=== PATIENT | female | born 1970 | race Caucasian/White ===

== ENCOUNTER → 2016-05-11 | Outpatient (CLI) | payer OTHER | LOC: FIMAGING 08:21 | DX: Z12.31 Encounter for screening mammogram for malignant neoplasm of breast (principal) | CPT/HCPCS: G0202 ==

== ENCOUNTER → 2016-05-22 | Outpatient (CLI) | payer OTHER | LOC: FIMAGING 13:22 | PROVIDERS: ATTEND Obstetrics & Gynecology Gynecology | DX: R92.8 Other abnormal and inconclusive findings on diagnostic imaging of breast (principal); N60.01 Solitary cyst of right breast; N60.02 Solitary cyst of left breast | CPT/HCPCS: G0206 ==

== ENCOUNTER 2016-09-10 06:06 | Day surgery (SDC) | payer OTHER ==
[2016-09-10] MEDS ORDERED: LR 1,000 ML IV ONE (07:02)
[2016-09-10] MEDS ORDERED: LIDOCAINE 1% 2 ML INJ ID PRN (07:02)
[2016-09-10] MEDS ORDERED: MIDAZOLAM 2 MG/2 ML VIAL IVP ONE (07:47)
--- NOTE | 2016-09-10 07:51 | PDANEPAE ---
ANE History of Present Illness Hysteroscopy ANE Past Medical History - Cardiovascular History Hx Hypertension: No Hx Arrhythmias: No Hx Chest Pain: No Hx Coronary Artery / Peripheral Vascular Disease: No Hx CHF / Valvular Disease: No Hx Palpitations: No - Pulmonary History Hx COPD: No Hx Asthma/Reactive Airway Disease: No Hx Recent Upper Respiratory Infection: No Hx Oxygen in Use at Home: No Hx Sleep Apnea: No Sleep Apnea Screening Result - Last Documented: Negative - Neurologic History Hx Cerebrovascular Accident: No Hx Seizures: No Hx Dementia: No - Endocrine History Hx Diabetes: No Hypothyroid: No Hyperthyroid: No - Renal History Hx Renal Disorders: No - Liver History Hx Hepatic Disorders: No - Neurological & Psychiatric Hx Hx Neurological and Psychiatric Disorders: No - Cancer History Hx Cancer: No - Congenital Disorder History Hx Congenital Disorders: No - GI History GERD: no Hx Gastrointestinal Disorders: No - Other Health History Other Health History: UTERINE FIBROID - Chronic Pain History Chronic Pain: No - Surgical History Prior Surgeries: NONE ANE Review of Systems Review of systems is: negative - Exercise capacity METS (RN): 4 METS ANE Patient History - Allergies Allergies/Adverse Reactions: No Known Allergies Allergy (Unverified 08/07/16 13:57) - Home Medications Home Medications: ACETAMINOPHEN 2 tab BID PRN 08/07/16 [Last Taken 08/20/16] Co Q-10 1 tab DAILY 08/07/16 [Last Taken 08/20/16] IRON 1 tab DAILY 08/07/16 [Last Taken 08/20/16] Multivitamin (*) 1 tab DAILY 08/07/16 [Last Taken 08/20/16] Potassium Gluconate 2 tab DAILY 08/07/16 [Last Taken 08/20/16] Super B Complex-Vitamin C 1 tab DAILY 08/07/16 [Last Taken 08/20/16] - NPO status NPO Since - Liquids (Date): 09/09/16 NPO Since - Liquids (Time): 20:00 NPO Since - Solids (Date): 09/09/16 NPO Since - Solids (Time): 20:00 - Anes Hx Hx Anesthesia Complications (with details): No History - Smoking Hx Smoking Status: Never smoked Marijuana use: No - Alcohol Use Alcohol Use: Occasionally - Family Anes Hx Family Hx Anesthesia Complications: Father ID under anesthesia ANE Labs/Vital Signs - Vital Signs Blood Pressure: 112/60 Heart Rate: 66 Respiratory Rate: 16 O2 Sat (%): 97 Height: 175.26 cm Weight: 65.771 kg ANE Physical Exam - Airway Neck exam: FROM Mallampati Score: Class 1 Mouth exam: normal dental/mouth exam - Pulmonary Pulmonary: no respiratory distress - Cardiovascular Cardiovascular: regular rate and rhythym, no murmur, rub, or gallop - ASA Status ASA Status: I ANE Anesthesia Plan Anesthesia Plan: GA w LMA
[2016-09-10] MEDS ORDERED: PROPOFOL/EMULSION 500 MG/50 ML BOTTLE IV ONE (08:00)
[2016-09-10] MEDS ORDERED: fentaNYL 100 MCG/2 ML INJ ONE (08:00)
--- NOTE | 2016-09-10 08:08 | PDHPUP ---
History & Physical Update H&P update statement: This history and physical update is based on an assessment of the patient which was completed after admission or registration (within 24 hours), but prior to the surgery/procedure. H&P update: H&P reviewed & patient examined, no change in patient's condition since H&P completed
[2016-09-10] MEDS ORDERED: ONDANSETRON 4 MG/2 ML VIAL ONE (08:22)
[2016-09-10] MEDS ORDERED: KETOROLAC 30 MG/1 ML SDV ONE (08:22)
[2016-09-10] MEDS ORDERED: DEXAMETHASONE 4 MG/ML VIAL ONE (08:22)
[2016-09-10] MEDS ORDERED: fentaNYL 100 MCG/2 ML INJ IVP PRN (09:33)
[2016-09-10] MEDS ORDERED: NALOXONE HCL 0.4 MG/ML INJ IVP PRN (09:33)
[2016-09-10] MEDS ORDERED: HYDROmorphONE/DILAUDID 1 MG/ML SYR IVP PRN (09:33)
[2016-09-10] MEDS ORDERED: ONDANSETRON 4 MG/2 ML VIAL IVP PRN (09:33)
[2016-09-10 09:55] VITALS: TEMP 97.9
[2016-09-10 10:04] VITALS: RESP 16
--- NOTE | 2016-09-10 10:30 | POSTOPPROG ---
Post Op Note Date of Operation: 09/10/16 Surgeon: Cheryl Arthur Anesthesiologist: RONNI Anesthesia: LMA Pre-op Diagnosis: dub,FIBROIDS Post-op Diagnosis: dub,fibroid Indication: bleeding Procedure: H/S myomectomy/Novasure Findings: uterine fibroid Inf/Abcess present in the surg proc area at time of surgery?: No EBL: Minimal Complications: none Specimen(s): endometrial tissue
[2016-09-10 10:41] VITALS: PULSE 47
[2016-09-10 10:52] VITALS: BP 115/64; O2SAT 97
--- NOTE | 2016-09-10 12:34 | POSTANESTH ---
Post Anesthetic Evaluation Respiratory Status: Normal, Stable Level of Consciousness/Mental Status: Can Participate in Eval Pain Control: Adequate, Prn Tx Ordered Nausea/Vomiting Control: Adequate, Prn Tx Ordered Complications Possibly Related to Anesthesia: None Noted
--- NOTE | 2016-09-11 11:56 | GOP ---
[f rep st] OPERATIVE REPORT DATE OF OPERATION: 09/10/2016 SURGEON: Cheryl Arthur MD ANESTHESIOLOGIST: Bailee Onofre MD. PREOPERATIVE DIAGNOSIS: 1. Heavy menstrual cycles. 2. Symptomatic submucosal fibroid. POSTOPERATIVE DIAGNOSIS: 1. Heavy menstrual cycles. 2. Symptomatic submucosal fibroid. PROCEDURE PERFORMED: Hysteroscopic myomectomy with NovaSure endometrial ablation. FINDINGS: Very large-sized fibroid originating from the posterior wall of the uterus. There were s everal low or uterine segment polyps; otherwise normal-appearing endometrium. DESCRIPTION OF PROCEDURE: With informed consent signed, patient was taken to the operating room, pl aced under general anesthesia, and placed in low dorsal lithotomy position. Bladder previously empt ied. Tenaculum placed on the anterior lip of the cervix. Cervix dilated up to 9.5 mm. Hysteroscop e placed using normal saline as a filling medium, Louie and NephSibaritus TruClear hysteroscopic morcellato r placed into the uterine cavity, and resection of the fibroid done without complication. Once it w as felt that it was completely resected, hysteroscope removed, and the NovaSure endometrial ablation device placed into the uterine cavity. The uterus was previously sounded to 8 cm, so the length on the NovaSure was 6.5 cm with 4.5 integrity test passed and burn time was 60 seconds. Net fluid de ficit was about 700. A quick look with the hysteroscope showed good ablation results. The patient was placed in supine position, awakened in the operating room, and taken to the recovery room in sta ble condition, having tolerated the procedure well. INDICATIONS FOR PROCEDURE: Patient is a 46-year-old, G zero, who has a history of infertility. Was seen here earlier this year for complaints of very heavy menstrual cycles. Ultrasound sonohysterog romain showed a 2 cm submucosal fibroid. The patient desires definitive management without major surge ry. Endometrial biopsy was negative, and the patient wished us to proceed. She is aware that this will take away any possible childbearing possibility. COMPLICATIONS: None. /[id number]/MODL
== END 2016-09-10 10:55 | disposition home or self-care (01) ==
LOC: FSGY 06:06
PROVIDERS: ATTEND Obstetrics & Gynecology Gynecology
PROC: 0U5B8ZZ Destruction of Endometrium, Via Natural or Artificial Opening Endoscopic (ICD-10-PCS; principal; 2016-09-10 08:00)
PROC: 0UDB8ZZ Extraction of Endometrium, Via Natural or Artificial Opening Endoscopic (ICD-10-PCS; principal; 2016-09-10 08:00)
DX: D25.0 Submucous leiomyoma of uterus (principal); N92.0 Excessive and frequent menstruation with regular cycle; N97.9 Female infertility, unspecified
CPT/HCPCS: 58561; 58563; C1782; J1100; J1885; J2250; J2405; J2704; J3010

== ENCOUNTER → 2018-08-08 | Outpatient (CLI) | payer OTHER | LOC: FIMAGING 08:40 ==